=== PATIENT | female | born 1940 | race Caucasian/White ===

== ENCOUNTER 2017-03-25 12:35 | Emergency (ER) | payer MEDICARE, OTHER ==
[~2017-03-25] VITALS: Ht 172.7 cm; Wt 103.0 kg
[~2017-03-25 12:35] MED LIST: ADVA250A INH; ATOR10TA PO; CYCL1PAK PO; ESTR.9 PO; FE FCAP; FLON0.053; HYDR-2768 PO; LEVO137T2 PO; METH2.5 PO; MONT10TA2 PO; NEXI10GR PO; PRED2.5T4 PO; TROS20TA PO; ULTR50TA PO; VENTAER INH
[2017-03-25 12:42] VITALS: BP_SYST 145; PULSE 84; RESP 18; TEMP 98.6; O2SAT 98
[2017-03-25] MEDS ORDERED: ESTR.3 PO (12:58)
[2017-03-25] MEDS ORDERED: ADVA250A INH (12:58)
[2017-03-25] MEDS ORDERED: [UNRECOGNIZED DRUG - CODE] (12:58)
[2017-03-25] MEDS ORDERED: VENTAER INH (12:58)
[2017-03-25] MEDS ORDERED: ATOR10TA15 PO (12:58)
[2017-03-25] MEDS ORDERED: TRAM1CAP (12:58)
[2017-03-25] MEDS ORDERED: [UNRECOGNIZED DRUG - CODE] (12:58)
[2017-03-25] MEDS ORDERED: NEXI40CA PO (12:58)
[2017-03-25] MEDS ORDERED: PRED2.5T PO (12:58)
[2017-03-25] MEDS ORDERED: CYCL1TAB29 PO (12:58)
[2017-03-25] MEDS ORDERED: L-THPOW PO (12:58)
[2017-03-25] MEDS ORDERED: METH2.5T PO (12:58)
[2017-03-25] MEDS ORDERED: MONT10TA4 PO (12:58)
[2017-03-25] MEDS ORDERED: TROS20TA PO (12:58)
[2017-03-25] MEDS ORDERED: TETANUS/DIPHTHERIA TOXOID ADULT 0.5 ML VIAL IM ONE (13:45)
--- NOTE | 2017-03-25 13:45 | RADRPT ---
EXAM DATE/TIME: 03/25/2017 13:36 [facility] COMPARISON: No previous studies available for comparison. INDICATIONS : Fall. Pain left foot. MEDICAL HISTORY : None. SURGICAL HISTORY : None. ENCOUNTER: Initial ACUITY: 1 day PAIN SCORE: 6/10 LOCATION: Left lateral FINDINGS: Soft tissue swelling is seen along the anterior aspect of the ankle extending into the forefoot. There is no evidence of fracture or dislocation. Bony structures are well aligned. CONCLUSION: Soft tissue swelling without evidence of fracture or dislocation. Grupo Diaz MD on March 25, 2017 at 13:42 Board Certified Radiologist. This report was verified electronically.
--- NOTE | 2017-03-25 13:48 | PD ---
HPI Chief Complaint: Fall Time Seen by Provider: 13:40 Travel History International Travel<30 days: No Contact w/Intl Traveler<30days: No Traveled to known affect area: No History of Present Illness HPI Patient presents with acute onset of left lower extremity swelling since this morning. States she was unable to get her left shoe on this morning. Reports a bilateral knee abrasions approximate 2 weeks ago after crawling on the floor to obtain something from underneath her bed. States her left knee abrasion did appear infected but is much improved now. Able to bear weight. PFSH Past Medical History Hx Anticoagulant Therapy: Yes Arthritis: Yes (RA AND OSTEO ) Asthma: Yes Autoimmune Disease: No Blood Disorders: No Heart Rhythm Problems: No Cancer: No High Cholesterol: Yes Chest Pain: No Congestive Heart Failure: No Diabetes: No Diminished Hearing: No Gastrointestinal Disorders: Yes GERD: Yes Genitourinary: No Hepatitis: No Hiatal Hernia: No Hypertension: Yes Immune Disorder: No Neurologic: No Psychiatric: No Reproductive: No Respiratory: Yes (asthma) Sleep Apnea: No Thyroid Disease: Yes (HYPOTHYROID) Ulcer: No PNEUMOCCOCAL Vaccine (Year): 1 ?: Not Menopausal: Yes Past Surgical History Abdominal Surgery: Yes (COLOSTOMY 1969, COLOSTOMY REVERSAL 1969) AICD: No Appendectomy: Yes Arteriovenous Shunt: No Cardiac Surgery: No Cholecystectomy: Yes Ear Surgery: No Endocrine Surgery: No Eye Surgery: No Genitourinary Surgery: Yes (GALLBLADDER 1984, APPENDECTOMY) Gynecologic Surgery: Yes Hysterectomy: Yes Insulin Pump: No Joint Replacement: No Neurologic Surgery: No Oral Surgery: No Pacemaker: No Thoracic Surgery: No Social History Alcohol Use: No Tobacco Use: No Substance Use: No Allergies-Medications (Allergen,Severity, Reaction): Coded Allergies: Contrast Media (Verified Allergy, Severe, IVP DYE-TONGUE SWELLS AND CAN'T BREATHE, 03/25/17) Dust (Verified Allergy, Severe, SOB, 03/25/17) Lisinopril (Unverified Allergy, Severe, 03/25/17) Grass (Verified Allergy, Intermediate, SOB, 03/25/17) Uncoded Allergies: CAT HAIR (Allergy, Severe, SOB, 11/08/07) TREES (Allergy, Intermediate, SOB, 11/08/07) Reported Meds & Prescriptions Reported Meds & Active Scripts Active Reported Hydrochlorothiazide 1 Gm Powder Unknown Dose Ventolin Hfa 18 GM Inh (Albuterol Sulfate) 90 Mcg/Act Aer 1 Puff INH Q4H PRN Advair Diskus Inh (Fluticasone-Salmeterol Inh) 250-50 Mcg/Blist Aer 1 Puff INH BID Rinse mouth after use. Fluticasone Propionate 5 Gm Powder Atorvastatin (Atorvastatin Calcium) 10 Mg Tab 10 Mg PO HS Premarin (Estrogens Conjugated) 0.3 Mg Tab 0.3 Mg PO DAILY Nexium (Esomeprazole DR) 40 Mg Capdr 40 Mg PO DAILY Montelukast (Montelukast Sodium) 10 Mg Tab 10 Mg PO HS Trospium 20 Mg Tab 20 Mg PO DAILY Tramadol HCl ER (Tramadol HCl) 150 Mg Cpbp.25.75 Unknown Dose Flexeril (Cyclobenzaprine HCl) 10 Mg Tab 10 Mg PO DAILY Prednisone 2.5 Mg Tab 2.5 Mg PO 1-2 TIMES DAILY L-Thyroxine (Bulk) (Levothyroxine (Bulk)) Bulk Pow 137 Mcg PO DAILY Methotrexate 2.5 Mg Tab 2.5 Mg PO 5 DAYS Physical Exam Narrative GENERAL: Well-nourished, well-developed patient. SKIN: Focused skin assessment warm/dry. HEAD: Normocephalic. EYES: No scleral icterus. No injection or drainage. NECK: Supple, trachea midline. No JVD or lymphadenopathy. CARDIOVASCULAR: Regular rate and rhythm without murmurs, gallops, or rubs. RESPIRATORY: Breath sounds equal bilaterally. No accessory muscle use. GASTROINTESTINAL: Abdomen soft, non-tender, nondistended. MUSCULOSKELETAL: No cyanosis, or edema. BACK: Nontender without obvious deformity. No CVA tenderness. Left lower extremity and ankle slightly more edematous than the right area no significant erythema noted negative Homans. Good dorsal pedis pulse. Left knee abrasion appears to be healing well without drainage or significant cellulitic change Data Data Last Documented VS Vital Signs Date Time Temp Pulse Resp B/P Pulse Ox O2 Delivery O2 Flow Rate FiO2 03/25/17 12:42 98.6 84 18 145/ 98 Orders Foot, Limited (2vws) (03/25/17 ) Tetanus/Diphtheria Tox Adult (Tetanus/Di (03/25/17 13:45) Us Leg Venous Doppler (03/25/17 13:40) MDM Medical Decision Making Medical Screen Exam Complete: Yes Emergency Medical Condition: Yes Differential Diagnosis Fluid retention, DVT, inflammatory process Narrative Course Assessment and plan discussed with patient and friend at bedside. Last 72 hours Impressions Foot X-Ray 03/25/17 0000 Signed Impressions: Service Date/Time: Saturday, March 25, 2017 13:36 - CONCLUSION: Soft tissue swelling without evidence of fracture or dislocation. Grupo Diaz MD Last 72 hours Impressions Lower Extremity Ultrasound 03/25/17 1340 Signed Impressions: Service Date/Time: Saturday, March 25, 2017 14:56 - CONCLUSION: No evidence of DVT. Grupo Diaz MD Foot X-Ray 03/25/17 0000 Signed Impressions: Service Date/Time: Saturday, March 25, 2017 13:36 - CONCLUSION: Soft tissue swelling without evidence of fracture or dislocation. Grupo Diaz MD Diagnosis Primary Impression: Fluid retention Patient Instructions: General Instructions Additional Instructions: Encouraged elevation, encouraged to observe diet and salt intake, encouraged support hose with extended ambulation. Continue general wound care for knee abrasions. Follow-up with PCP. Return to emergency room with any onset of new symptoms. Med/Other Pt SpecificInfo: No Meds Exist/No RX given Disposition: 01 DISCHARGE HOME Condition: Good Jeffrey Steve MD Mar 25, 2017 13:48
--- NOTE | 2017-03-25 15:35 | RADRPT ---
EXAM DATE/TIME: 03/25/2017 14:56 [facility] COMPARISON: No previous studies available for comparison. INDICATIONS : Left leg swelling. MEDICAL HISTORY : Hypothyroidism. Hypercholesterolemia. Hypertension. Anticoagulant therapy. Asthma. Gastroesophagea l reflux disease. Rheumatoid arthritis. Measles. SURGICAL HISTORY : Appendectomy. Cholecystectomy. Colostomy. Hysterectomy. Bilateral knee replacements. ENCOUNTER: Initial ACUITY: 1 day PAIN SCORE: 3/10 LOCATION: Left leg. TECHNIQUE: Venous ultrasound of the leg was performed from the inguinal ligament to the proximal calf. Real-lillian e, color Doppler and spectral tracing, compression and augmentation techniques were used. FINDINGS: There is normal compressibility of the deep venous system from the inguinal region to the proximal ca lf. No echogenic clot is seen in the lumen of the common femoral, femoral, popliteal, and posterior tibial veins. There is a normal response of the venous system to proximal and distal augmentation an d respiration. CONCLUSION: No evidence of DVT. Grupo Diaz MD on March 25, 2017 at 15:33 Board Certified Radiologist. This report was verified electronically.
== END 2017-03-25 16:12 | disposition home or self-care (01) ==
LOC: PHED 12:35
DX: R60.9 Edema, unspecified (principal); E03.9 Hypothyroidism, unspecified; Z23 Encounter for immunization
CPT/HCPCS: 73620; 90471; 90714; 93971

== ENCOUNTER 2017-08-31 19:09 | Emergency (ER) | payer MEDICARE, OTHER ==
[~2017-08-31] VITALS: Ht 172.7 cm; Wt 98.0 kg
[~2017-08-31 19:09] MED LIST changes: -ATOR10TA PO; +ATOR10TA15 PO; +CYCL10TA PO; -CYCL1PAK PO; +ESTR.3 PO; -ESTR.9 PO; -FE FCAP; -FLON0.053; -HYDR-2768 PO; +L-THPOW PO; -LEVO137T2 PO; -METH2.5 PO; +METH2.5T PO; -MONT10TA2 PO; +MONT10TA4 PO; -NEXI10GR PO; +NEXI40CA PO; +PRED2.5T PO; -PRED2.5T4 PO; -ULTR50TA PO; +[UNRECOGNIZED DRUG - CODE]; +[UNRECOGNIZED DRUG - CODE]; +[UNRECOGNIZED DRUG - CODE]
[2017-08-31 19:21] VITALS: BP 137/69; PULSE 98; RESP 28; TEMP 100.1; O2SAT 96
--- NOTE | 2017-08-31 19:28 | PD ---
HPI Chief Complaint: Respiratory Symptoms Time Seen by Provider: 19:21 Travel History International Travel<30 days: No Contact w/Intl Traveler<30days: No Traveled to known affect area: No History of Present Illness HPI The patient is a 77-year-old female that complains of cough, low-grade fever and wheezing and shortness of breath since the first of this month. She never called her primary care physician. She does not smoke. She denies any chest pain. Her neighbors apparently called the ambulance and she was given 2 albuterol treatments in route as well as 125 of Solu-Medrol. She does not get oxygen at home. She does not have a nebulizer machine at home. PFSH Past Medical History Hx Anticoagulant Therapy: Yes Arthritis: Yes (RA AND OSTEO ) Asthma: Yes Autoimmune Disease: No Blood Disorders: No Heart Rhythm Problems: No Cancer: No High Cholesterol: Yes Chest Pain: No Congestive Heart Failure: No Diabetes: No Diminished Hearing: No Gastrointestinal Disorders: Yes GERD: Yes Genitourinary: No Hepatitis: No Hiatal Hernia: No Hypertension: Yes Immune Disorder: No Neurologic: No Psychiatric: No Reproductive: No Respiratory: Yes (asthma) Sleep Apnea: No Thyroid Disease: Yes (HYPOTHYROID) Ulcer: No PNEUMOCCOCAL Vaccine (Year): 1 ?: Not Menopausal: Yes Past Surgical History Abdominal Surgery: Yes (COLOSTOMY 1969, COLOSTOMY REVERSAL 1969) AICD: No Appendectomy: Yes Arteriovenous Shunt: No Cardiac Surgery: No Cholecystectomy: Yes Ear Surgery: No Endocrine Surgery: No Eye Surgery: No Genitourinary Surgery: Yes (GALLBLADDER 1984, APPENDECTOMY) Gynecologic Surgery: Yes Hysterectomy: Yes Insulin Pump: No Joint Replacement: No Neurologic Surgery: No Oral Surgery: No Pacemaker: No Thoracic Surgery: No Social History Alcohol Use: No Tobacco Use: No Substance Use: No Allergies-Medications (Allergen,Severity, Reaction): Coded Allergies: diatrizoate meglumine (Unverified Allergy, Severe, IVP DYE-TONGUE SWELLS AND CAN'T BREATHE, 08/31/17) gadobenic acid (Unverified Allergy, Severe, IVP DYE-TONGUE SWELLS AND CAN' T BREATHE, 08/31/17) gadodiamide (Unverified Allergy, Severe, IVP DYE-TONGUE SWELLS AND CAN'T BREATHE, 08/31/17) gadoteridol (Unverified Allergy, Severe, IVP DYE-TONGUE SWELLS AND CAN'T BREATHE, 08/31/17) house dust (Unverified Allergy, Severe, SOB, 08/31/17) iodixanol (Unverified Allergy, Severe, IVP DYE-TONGUE SWELLS AND CAN'T BREATHE, 08/31/17) iohexol (Unverified Allergy, Severe, IVP DYE-TONGUE SWELLS AND CAN'T BREATHE, 08/31/17) lisinopril (Unverified Allergy, Severe, 08/31/17) grass pollen (Unverified Allergy, Intermediate, SOB, 08/31/17) Uncoded Allergies: CAT HAIR (Allergy, Severe, SOB, 11/08/07) TREES (Allergy, Intermediate, SOB, 11/08/07) Reported Meds & Prescriptions Reported Meds & Active Scripts Active Prednisone 50 Mg Tab 50 Mg PO DAILY 5 Days Zithromax (Azithromycin) 500 Mg Tab 500 Mg PO DAILY 5 Days Guaifenesin AC Liq (Guaifenesin-Codeine Liq) 100-10 Mg/5 Ml Syrp 10 Ml PO Q4H PRN Reported Levoxyl (Levothyroxine Sodium) 137 Mcg Tab 137 Mcg PO DAILY Omeprazole 40 Mg Cap 40 Mg PO DAILY Ventolin Hfa 18 GM Inh (Albuterol Sulfate) 90 Mcg/Act Aer 1 Puff INH Q4H PRN Advair Diskus Inh (Fluticasone-Salmeterol Inh) 250-50 Mcg/Blist Aer 1 Puff INH BID Rinse mouth after use. Atorvastatin (Atorvastatin Calcium) 10 Mg Tab 10 Mg PO HS Premarin (Estrogens Conjugated) 0.3 Mg Tab 0.3 Mg PO DAILY Montelukast (Montelukast Sodium) 10 Mg Tab 10 Mg PO HS Trospium 20 Mg Tab 20 Mg PO DAILY Flexeril (Cyclobenzaprine HCl) 10 Mg Tab 10 Mg PO DAILY Prednisone 2.5 Mg Tab 2.5 Mg PO 1-2 TIMES DAILY Methotrexate 2.5 Mg Tab 2.5 Mg PO 5 DAYS Review of Systems Except as stated in HPI: all other systems reviewed are Neg Physical Exam Narrative GENERAL: The patient is alert, oriented 3 in minimal respiratory distress. Her vital signs show temperature 100.2 with pulse rate 98 and 95% oximetry on room air. SKIN: Focused skin assessment warm/dry. No skin rash is seen. HEAD: Atraumatic. Normocephalic. EYES: Pupils equal and round. No scleral icterus. No injection or drainage. ENT: No nasal bleeding or discharge. Mucous membranes pink and moist. NECK: Trachea midline. No JVD. CARDIOVASCULAR: Regular rate and rhythm. No murmur appreciated. RESPIRATORY: No accessory muscle use. Bilateral wheezes are heard in all lung [place]. Breath sounds equal bilaterally. GASTROINTESTINAL: Abdomen soft, non-tender, nondistended. Hepatic and splenic margins not palpable. MUSCULOSKELETAL: No obvious deformities. No clubbing. No cyanosis. No edema. NEUROLOGICAL: Awake and alert. No obvious cranial nerve deficits. Motor grossly within normal limits. Normal speech. PSYCHIATRIC: Appropriate mood and affect; insight and judgment normal. Data Data Last Documented VS Vital Signs Date Time Temp Pulse Resp B/P (MAP) Pulse Ox O2 Delivery O2 Flow Rate FiO2 08/31/17 20:49 109 24 134/63 (86) 94 08/31/17 20:48 99.8 08/31/17 19:34 Room Air Orders Orders Complete Blood Count With Diff (08/31/17 19:21) Comprehensive Metabolic Panel (08/31/17 19:21) Influenzae A/B Antigen (08/31/17 19:21) Urinalysis - C+S If Indicated (08/31/17 19:21) Chest, Pa & Lat (08/31/17 19:21) Arterial Blood Gas (Abg) (08/31/17 19:21) Sodium Chloride 0.9% Flush (Ns Flush) (08/31/17 19:30) B-Type Natriuretic Peptide (08/31/17 19:21) Albuterol-Ipratropium Neb (Duoneb Neb) (08/31/17 19:30) Lactic Acid Sepsis Protocol (08/31/17 19:29) Blood Culture (08/31/17 19:29) Electrocardiogram (08/31/17 19:33) Azithromycin (Zithromax) (08/31/17 22:30) Labs Laboratory Tests Test 08/31/17 19:25 08/31/17 19:32 White Blood Count 12.5 TH/MM3 Red Blood Count 4.15 MIL/MM3 Hemoglobin 11.4 GM/DL Hematocrit 35.4 % Mean Corpuscular Volume 85.4 FL Mean Corpuscular Hemoglobin 27.6 PG Mean Corpuscular Hemoglobin Concent 32.3 % Red Cell Distribution Width 17.8 % Platelet Count 289 TH/MM3 Mean Platelet Volume 8.1 FL Neutrophils (%) (Auto) 68.8 % Lymphocytes (%) (Auto) 23.0 % Monocytes (%) (Auto) 6.1 % Eosinophils (%) (Auto) 1.7 % Basophils (%) (Auto) 0.4 % Neutrophils # (Auto) 8.6 TH/MM3 Lymphocytes # (Auto) 2.9 TH/MM3 Monocytes # (Auto) 0.8 TH/MM3 Eosinophils # (Auto) 0.2 TH/MM3 Basophils # (Auto) 0.0 TH/MM3 CBC Comment DIFF FINAL Differential Comment Blood Urea Nitrogen 18 MG/DL Creatinine 1.30 MG/DL Random Glucose 133 MG/DL Total Protein 7.1 GM/DL Albumin 2.9 GM/DL Calcium Level 9.6 MG/DL Alkaline Phosphatase 102 U/L Aspartate Amino Transf (AST/SGOT) 60 U/L Alanine Aminotransferase (ALT/SGPT) 27 U/L Total Bilirubin 0.5 MG/DL Sodium Level 139 MEQ/L Potassium Level 3.4 MEQ/L Chloride Level 100 MEQ/L Carbon Dioxide Level 34.0 MEQ/L Anion Gap 5 MEQ/L Estimat Glomerular Filtration Rate 40 ML/MIN B-Type Natriuretic Peptide 45 PG/ML Blood Gas Puncture Site RT BRACHIAL Blood Gas Patient Temperature 98.6 Blood Gas HCO3 31 mmol/L Blood Gas Base Excess 7.0 mmol/L Blood Gas Oxygen Saturation 92 % Arterial Blood pH 7.50 Arterial Blood Partial Pressure CO2 40 mmHG Arterial Blood Partial Pressure O2 67 mmHG Arterial Blood Oxygen Content 14.1 Vol % Arterial Blood Carboxyhemoglobin 1.5 % Arterial Blood Methemoglobin 0.9 % Blood Gas Hemoglobin 10.9 G/DL Oxygen Delivery Device NONE Blood Gas Inspired Oxygen 21 % Lactic Acid Level 1.9 mmol/L MDM Medical Decision Making Medical Screen Exam Complete: Yes Emergency Medical Condition: Yes Medical Record Reviewed: Yes Interpretation(s) The influenza A/B antigen is negative for flu a and flu B antigen. The complete metabolic profile shows a creatinine 1.3, GFR 40, albumin 2.9, GOT of 60 and potassium 3.4 and bicarbonate 34 but is otherwise normal. The CBC shows a white count 12,500 but is otherwise normal. The blood gases on room air show pH 7.5, CO2 40, PO2 67 with O2 sat 92%. EKG shows sinus rhythm with a rate of 57 with right bundle branch block and left anterior fascicular block. Differential Diagnosis Bronchitis with bronchospasm, pneumonia, viral syndrome, electrolyte disorder, congestive heart failure, hypoxemia, flu syndrome Narrative Course The patient has bronchitis with bronchospasm. She is not hypoxemic and her chest x-ray is normal. This could be a viral syndrome with the patient now states she has had this for 4 weeks and we will try her on Zithromax. Also we will give her 5 days of prednisone and an albuterol HFA puffer. She does not have a nebulizer at home. Sepsis Criteria SIRS Criteria (2 or more): Heart rate over 90 Diagnosis Primary Impression: Bronchitis with bronchospasm Additional Instructions: As we discussed, if you get worse he will need to return to emergency department for reevaluation. Drink plenty of liquids and follow-up with your primary care physician next week. Med/Other Pt SpecificInfo: Prescription(s) given Scripts Prednisone (Prednisone) 50 Mg Tab 50 MG PO DAILY for 5 Days, #5 TAB 0 Refills Prov: Scar Christianson MD 08/31/17 Azithromycin (Zithromax) 500 Mg Tab 500 MG PO DAILY for Infection for 5 Days, #5 TAB 0 Refills Prov: Scar Christianson MD 08/31/17 Guaifenesin-Codeine Liq (Guaifenesin AC Liq) 100-10 Mg/5 Ml Syrp 10 ML PO Q4H Y for COUGH, #1 BOTTLE 0 Refills Prov: Scar Christianson MD 08/31/17 Disposition: 01 DISCHARGE HOME Condition: Stable Scar Christianson MD Aug 31, 2017 19:28
[2017-08-31] MEDS ORDERED: SODIUM CHLORIDE 0.9% FLUSH 10 ML FLUSH IVF PRN (19:30)
[2017-08-31] MEDS: RESP: ALBUTEROL 2.5 MG/IPRATROPIUM 0.5 MG NEB (SCH) INH ×2 (19:33→19:34)
[2017-08-31 19:36] LABS: AUTOMATED NEUTROPHIL # 8.6 TH/MM3 (1.8-7.7); BASOPHIL % 0.4 % (0.0-2.0); EOSINOPHIL # 0.2 TH/MM3 (0-0.4); EOSINOPHIL % 1.7 % (0.0-4.0); HEMATOCRIT 35.4 % (35.0-46.0); HEMOGLOBIN 11.4 GM/DL (11.6-15.3); LYMPHOCYTE # 2.9 TH/MM3 (1.0-4.8); MEAN CELL VOLUME 85.4 FL (80.0-100.0); MEAN CORPUSCULAR HEMOGLOBIN 27.6 PG (27.0-34.0); MEAN CORPUSCULAR HGB CONC 32.3 % (32.0-36.0); MEAN PLATELET VOLUME 8.1 FL (7.0-11.0); MONO % 6.1 % (0.0-8.0); MONOCYTE # 0.8 TH/MM3 (0-0.9); NEUT % 68.8 % (16.0-70.0); PLATELET COUNT 289 TH/MM3 (150-450); RED BLOOD COUNT 4.15 MIL/MM3 (4.00-5.30); RED CELL DISTRIBUTION WIDTH 17.8 % (11.6-17.2); WHITE BLOOD COUNT 12.5 TH/MM3 (4.0-11.0)
[2017-08-31 19:44] LABS: CHLORIDE 100 MEQ/L (98-107); SODIUM (NA) 139 MEQ/L (136-145)
[2017-08-31 19:48] LABS: ALBUMIN 2.9 GM/DL (3.4-5.0); BLOOD UREA NITROGEN 18 MG/DL (7-18); CALCIUM 9.6 MG/DL (8.5-10.1); GLUCOSE,RANDOM 133 MG/DL (74-106)
[2017-08-31 19:51] LABS: ALT (GPT) 27 U/L (10-53); AST (GOT) 60 U/L (15-37); GLOMERULAR FILTRATION RATE 40 ML/MIN (>89)
[2017-08-31 19:53] LABS: TOTAL BILIRUBIN ADULT 0.5 MG/DL (0.2-1.0); TOTAL PROTEIN 7.1 GM/DL (6.4-8.2)
[2017-08-31 19:54] LABS: ALKALINE PHOSPHATASE 102 U/L (45-117)
[2017-08-31 20:48] VITALS: TEMP 99.8
[2017-08-31 20:49] VITALS: BP 134/63; PULSE 109; RESP 24; O2SAT 94
[2017-08-31] MEDS ORDERED: OMEP40CA2 PO (21:03)
[2017-08-31] MEDS ORDERED: LEVO137T18 PO (21:03)
--- NOTE | 2017-08-31 21:33 | RADRPT ---
EXAM DATE/TIME: 08/31/2017 19:32 [facility] COMPARISON: No previous studies available for comparison. INDICATIONS : Cough and short of breath MEDICAL HISTORY : None. SURGICAL HISTORY : None. ENCOUNTER: Initial ACUITY: 1 day PAIN SCORE: 0/10 LOCATION: Bilateral chest FINDINGS: PA and lateral views of the chest demonstrate the lungs to be symmetrically aerated without evidence of mass, infiltrate or effusion. The cardiomediastinal contours are unremarkable. Osseous structure s are intact. CONCLUSION: No acute disease. Juan Morales Jr., MD on August 31, 2017 at 21:31 Board Certified Radiologist. This report was verified electronically.
--- NOTE | 2017-08-31 21:50 | EKG ---
Date Performed: 08/31/2017 Time Performed: 19:49:55 PTAGE: 77 years EKG: Baseline artifact present probable Sinus rhythm WITH FREQUENT SUPRAVENTRICULAR PREMATURE COMPLEXES RIGHT BUNDLE BRANCH BLOCK LEFT ANTERIOR FASCICULA R BLOCK POSSIBLE ANTEROSEPTAL MYOCARDIAL INFARCTION ABNORMAL ECG No significant change from prior kayleigh ctrocardiogram. PREVIOUS TRACING : 07/21/2013 07.20 DOCTOR: Aurelio Seymour Interpretating Date/Time 08/31/2017 21:49:26
[2017-08-31 22:10] VITALS: BP 158/77; PULSE 100; RESP 20
[2017-08-31] MEDS ORDERED: GUAISYP4 PO (22:21)
[2017-08-31] MEDS ORDERED: PRED50 PO (22:21)
[2017-08-31] MEDS ORDERED: ZITH500T PO (22:21)
[2017-08-31] MEDS ORDERED: AZITHROMYCIN 250 MG TAB PO ONE (22:30)
[2017-08-31 22:42] VITALS: BP 158/72; PULSE 106; RESP 20; TEMP 100; O2SAT 96
[2017-08-31] MEDS ORDERED: IPRASOL INH (23:33)
[2017-08-31 23:43] VITALS: BP 135/64; PULSE 94; RESP 20; O2SAT 94
[2017-08-31 23:54] LABS: BILIRUBIN, URINE NEG (NEG); BLOOD, URINE NEG (NEG); GLUCOSE,URINE 100 mg/dL (NEG); KETONE, URINE TRACE mg/dL (NEG); NITRITE,URINE NEG (NEG); PH, URINE 5.5 (5.0-8.5); URINE LEUKOCYTE ESTERASE NEG (NEG)
[2017-08-31 23:59] LABS: URINE COLOR YELLOW (YELLW/STRAW)
[2017-09-01] LABS: BACTERIA, URINE OCC /hpf; RBC, URINE 0-2 /hpf (0-3); SQUAMOUS EPITHELIAL CELL URINE 0-5 /hpf (0-5); WBC, URINE 0-2 /hpf (0-5)
== END 2017-09-01 01:01 | disposition home or self-care (01) ==
LOC: PHED 19:09
DX: J45.909 Unspecified asthma, uncomplicated (principal); E03.9 Hypothyroidism, unspecified; E78.00 Pure hypercholesterolemia, unspecified; K21.9 Gastro-esophageal reflux disease without esophagitis
CPT/HCPCS: 36600; 71046; 80053; 81001; 82805; 83605; 83880; 85025; 87040; 87804; 93005; 94640; 94664; 99285